=== PATIENT | female | born 1980 | race African-American/Black ===

== ENCOUNTER 2018-04-13 21:39 | Emergency (ER) | payer BC ==
[~2018-04-13] VITALS: Ht 160 cm; Wt 97.5 kg
[~2018-04-13 21:39] MED LIST: APAP500 PO; COLACE 100 MG100 MG PO; DERMOPLAST SPRA56 ML TOP; FEOSOL325 M1 PO; FLAGYL 250 MG250 MG PO; HYDROCODONE-AP1 EAC6 PO; IBUPROFEN 600600 M1 PO; LANOLIN56 GM TOP; MACROBID 100 M100 M1 PO; PRENATAL PO; TUCKS1 EAC1 TOP; ZYRTEC10 M2 PO
[2018-04-13] MEDS ORDERED: ALLERGY SYRING1 EAC2 SUBQ (21:51)
[2018-04-13 22:10] LABS: ABSOLUTE NEUTROPHILS 4.1 thou/uL (1.4-8.2); BASOPHILS 1.3 % (0.0-2.0); EOSINOPHILS 4.6 % (0.0-3.0); HEMATOCRIT 27.5 % (37.0-47.0); LYMPHOCYTES 32.3 % (24.0-44.0); MCH 23.1 pg (26.0-34.0); MCHC 32.7 g/dL (28.0-37.0); MCV 70.5 fL (80.0-100.0); MONOCYTES 7.6 % (1.0-8.0); PLATELET COUNT 248 thou/uL (150-400); POLYS 54.2 % (36.0-66.0); RBC 3.91 mil/uL (4.20-5.00); RDW 16.5 % (10.5-14.5); WBC 7.5 thou/uL (4.0-11.0)
[2018-04-13 22:15] LABS: ANION GAP 8 mmol/L (7-16); BUN 10 mg/dL (7-18); CALCIUM 8.5 mg/dL (8.5-10.1); CHLORIDE 105 mmol/L (98-107); CO2 29 mmol/L (21-32); CREATININE 0.9 mg/dL (0.6-1.0); GLUCOSE 106 mg/dL (74-106); POTASSIUM 3.3 mmol/L (3.5-5.1); SODIUM 142 mmol/L (136-145)
[2018-04-13 22:23] LABS: ALBUMIN 3.4 g/dL (3.4-5.0); SGOT 11 U/L (15-37); SGPT 14 U/L (30-65); TOTAL BILIRUBIN 0.2 mg/dL (<0.1-1.0); TOTAL PROTEIN 7.7 g/dL (6.4-8.2); TROPONIN-I <0.06 ng/mL (<0.06)
[2018-04-13] MEDS ORDERED: NAPROSYN500 MG PO (22:34)
[2018-04-13] MEDS ORDERED: NORFLEX100 MG PO (22:34)
[2018-04-13 22:51] LABS: AMP/METHAMP Negative (Negative); BARBITURATES Negative (Negative); BENZODIAZEPINES Negative (Negative); COCAINE Negative (Negative); METHADONE Negative (Negative); OPIATES Negative (Negative); PCP Negative (Negative)
[2018-04-14] LABS: ANISOCYTOSIS 1+; HYPOCHROMASIA 1+; MICROCYTES 1+
[2018-04-14 00:09] VITALS: BP 95/71
--- NOTE | 2018-04-15 08:42 | EKG ---
[place] [address] [facility] [place] [address] ELECTROCARDIOGRAM REPORT Name: CANDIE DEAL Room #: [facility]#: [id number] Admission: 04/13/18 Attend Phys: Discharge: 04/14/18 Date of : 82 Report #: [id number] THIS REPORT FOR: //name// [facility] ED Test Date: 2018-04-13 Test Time: 21:44:03 Pat Name: CANDIE DEAL Department: Room: Gender: F Line Helper: AMY : 1980 Requested By: Amado Lerma Order Number: [id number] MD: Hugo Yuen Measurements Intervals [place] Rate: 80 P: 42 ID: 160 QRS: -6 QRSD: 102 T: 3 QT: 363 QTc: 419 Interpretive Statements Sinus rhythm RSR' in V1 or V2, right VCD Borderline T abnormalities, anterior leads No previous ECG available for comparison Electronically Signed On 04-15-2018 8:42:39 [employer]OY[employer] by Hugo Yuen [email or web address] <ELECTRONICALLY SIGNED> By: Hugo Yuen MD, [facility] 04/15/18 0842 D: 01/2143 43 Hugo Yuen MD, FACC /EPI
== END 2018-04-14 00:29 | disposition home or self-care (01) ==
LOC: ER 21:39
PROVIDERS: Emergency Medicine
DX: M94.0 Chondrocostal junction syndrome [Tietze] (principal); R91.8 Other nonspecific abnormal finding of lung field; E66.01 Morbid (severe) obesity due to excess calories; Z68.38 Body mass index [BMI] 38.0-38.9, adult; Z79.899 Other long term (current) drug therapy